=== PATIENT | male | born 1985 | race Two or more races ===

== ENCOUNTER 2016-12-06 19:12 | Emergency (ER) | payer SELFPAY ==
[~2016-12-06] VITALS: Ht 165.1 cm; Wt 62.1 kg
--- NOTE | 2016-12-06 19:13 | NUR ---
PT BIB RA WITH [employer] AT BEDSIDE FOR BIZARRE AND AGGRESSIVE BEHAVIOR. PT REPORTS DRUG USE. RESP EVEN UNLABORED. SKIN WARM NONDIAPHORETIC. PT BECOMES EASILY AGITATED, HAS SPIT RUIZ ON FROM RESCUE AND IN RESTRAINTS. PLACED IN ER BED 15 ON 4POINT RESTRAINTS.
[2016-12-06] MEDS ORDERED: HALOPERIDOL LACTATE INJ 5 MG/ML VIAL ONE (19:14)
[2016-12-06] MEDS ORDERED: LORAZEPAM INJ 2 MG/ML VIAL ONE (19:15)
--- NOTE | 2016-12-06 19:27 | NUR ---
PYXIS NOTE: DISCREPANCY CREATED BY AJAY PANIAGUA AND MYSELF WHILE REMOVING 2MG ATIVAN FOR THIS PT. COUNTING ERROR OCCURRED AND DOCUMENTED THAT THERE WAS ONLY 1 VIAL IN PYXIS STOCK. CORRECT COUNT WAS 15 BEFORE 1 VIAL WAS REMOVED FOR THIS PT, ORDERED. ERROR WAS DOCUMENTED WITH ARCELIA KRAUSE. MEDICATIONS WERE RECOUNTED WITH JOSÉ MIGUEL BARRETT RN, TO CORRECT COUNT.
[2016-12-06] MEDS ORDERED: IV NS 0.9% 1,000 ML BAG IV ONE (19:30)
[2016-12-06] MEDS ORDERED: diphenhydrAMINE HCL 50 MG/ML VIAL IV ONE (19:30)
[2016-12-06] MEDS ORDERED: HALOPERIDOL LACTATE INJ 5 MG/ML VIAL IM ONE (19:30)
[2016-12-06] MEDS ORDERED: LORAZEPAM INJ 2 MG/ML VIAL IM ONE (19:30)
[2016-12-06 19:41] LABS: BASOPHILS % (AUTO) 0.4 % (0.0-2.0); EOSINOPHILS # (AUTO) 0.1 /CMM (0.0-0.7); EOSINOPHILS % (AUTO) 0.7 % (0.0-6.0); HEMATOCRIT 37 % (39-51); HEMOGLOBIN 13.1 g/dL (13.5-17.5); LYMPHOCYTES # (AUTO) 1.8 /CMM (0.8-4.8); LYMPHOCYTES % (AUTO) 21.2 % (20.0-44.0); MEAN CORPUSCULAR HEMOGLOBIN 30 PG (26.0-33.0); MEAN CORPUSCULAR HGB CONC 35 g/dl (31.0-36.0); MEAN CORPUSCULAR VOLUME 87 fL (80-96); MONOCYTES # (AUTO) 1.1 /CMM (0.1-1.30); MONOCYTES % (AUTO) 12.4 % (2.0-12.0); NEUTROPHILS # (AUTO) 5.7 /CMM (1.8-8.9); NEUTROPHILS % (AUTO) 65.3 % (43.0-81.0); PLATELET COUNT (AUTO) 234 /CMM (150-450); RDW COEFFICIENT OF VARIATION 12.8 (11.5-15.0); RED BLOOD CELL COUNT(AUTO) 4.32 MIL/uL (4.5-6.0); WHITE BLOOD COUNT (AUTO) 8.7 K/uL (4.3-11.0)
[2016-12-06] MEDS ORDERED: IV NS 0.9% 1,000 ML ONE (19:50)
[2016-12-06] MEDS ORDERED: IV SET PRIMARY 1 EA INFUS.SET MC ONE (19:50)
[2016-12-06] MEDS ORDERED: diphenhydrAMINE HCL 50 MG/ML VIAL ONE (19:50)
--- NOTE | 2016-12-06 19:59 | NUR ---
PT ASLEEP BUT EASILY AROUSABLE, SNORING., HR 94. PER MD, HOLD BENADRYL AND IVF AT THIS TIME. NO IV ACCESS NEEDED FOR CURRENT STATUS.
[2016-12-06 20:03] LABS: ALANINE AMINOTRANSFERASE 42 U/L (12-78); ALBUMIN 3.7 g/dL (3.4-5.0); ALCOHOL, BLOOD 221 mg/dL (0-0); ALKALINE PHOSPHATASE 93 U/L (46-116); ASPARTATE AMINOTRANSFERASE 38 U/L (15-37); BILIRUBIN,DIRECT 0.3 mg/dL (0.0-0.2); BILIRUBIN,TOTAL 2.4 mg/dL (0.2-1.0); CALCIUM, SERUM 8.4 mg/dL (8.5-10.1); CARBON DIOXIDE 23 mmol/L (21-32); CHLORIDE 100 mmol/L (98-107); CREATININE 1.1 mg/dL (0.6-1.3); GFR 78 mL/min (>60); GLUCOSE 139 mg/dL (74-106); SODIUM SERUM 138 mmol/L (136-145); TOTAL PROTEIN, SERUM 6.7 g/dL (6.4-8.2); UREA NITROGEN, BLOOD 20 mg/dL (7-18)
[2016-12-06 20:13] LABS: ACETAMINOPHEN 0 ug/ml (10-30)
[2016-12-06 20:14] LABS: SALICYLATE < 2.8 mg/dL (2.8-20.0)
--- NOTE | 2016-12-06 22:53 | NUR ---
RESTING QUIETLY, NAD NOTED. ASLEEP BUT EASILY AROUSABLE.
--- NOTE | 2016-12-06 23:51 | NUR ---
ENDORSED TO NENA SLASHER FOR CONTINUITY OF CARE. NAD NOTED. REMAINS AROUSABLE BUT SLEEPING CURRENTLY.
--- NOTE | 2016-12-07 01:00 | NUR ---
PT RESTING COMFORTABLY ON BED. AWAKENS TO NAME, THEN RETURNS TO SLEEP. DENIES COMPLAINT. VSS, NAD NOTED.
--- NOTE | 2016-12-07 03:05 | NUR ---
PT RESTING LEFT LATERAL ON BED. AWAKENS TO NAME, ASKED FOR BLANKET. BLANKET GIVEN. DENIES COMPLAINT. VSS, NAD NOTED.
--- NOTE | 2016-12-07 05:13 | NUR ---
Patient discharged to home in stable condition. Written and verbal after care instructions given. Patient verbalizes understanding of instruction. IV removed. Catheter intact and site benign. Pressure and 4x4 applied to site. No bleeding noted. Pt ambulatory with a steady gait. Appears clinically sober; answer all questions appropriately. VSS, NAD noted on DC. Denies complaint on DC.
[2016-12-07 05:14] VITALS: BP 131/89
== END 2016-12-07 05:17 | disposition home or self-care (01) ==
LOC: ER 19:14
DX: F19.10 Other psychoactive substance abuse, uncomplicated (principal)
CPT/HCPCS: 36415; 80048; 80076; 80329; 85025; 96372 ×2; 99284; A4606; G0480 ×2; J1200; J1630; J2060; J7030; Z7610; G6039-TC